=== PATIENT | male | born 1975 | race Caucasian/White ===

== ENCOUNTER 2020-01-19 08:50 | Day surgery (SDC) | payer MEDICAID, OTHER ==
[~2020-01-19 08:50] MED LIST: ACETAMINOPHEN 1,000 MG/100 ML BTL IVPB ONE
[2020-01-19] MEDS ORDERED: FENTANYL PF 100MCG/2ML VIAL IV ONE (08:51)
[2020-01-19] MEDS ORDERED: LIDOCAINE 2% MDV (20MG/ML) 20ML VIAL IV ONE (08:51)
[2020-01-19] MEDS ORDERED: PROPOFOL 10 MG/ML VIAL IV ONE (08:51)
[2020-01-19] MEDS ORDERED: MIDAZOLAM HCL 2MG/2ML VIAL IV ONE (08:51)
[2020-01-19] MEDS ORDERED: RINGERS SOLUTION,LACTATED 1,000 ML IV ONE (09:40)
[2020-01-19] MEDS ORDERED: BUPIVACAINE 0.25% W/EPI MPF 30ML VIAL SQ ONE (11:12)
[2020-01-19] MEDS ORDERED: HYDROCODONE/APAP 5/325MG TABLET PO ONE (11:47)
--- NOTE | 2020-01-21 08:05 | Operative Note ---
DATE OF SURGERY: 01/19/2020 SURGEON: Herb Ramsey D.O. PREOPERATIVE DIAGNOSIS: ADHESIVE CAPSULITIS OF THE RIGHT SHOULDER. POSTOPERATIVE DIAGNOSIS: ADHESIVE CAPSULITIS OF THE RIGHT SHOULDER. OPERATION: 1. MANIPULATION UNDER ANESTHESIA RIGHT SHOULDER. 2. INJECTION RIGHT SHOULDER. DESCRIPTION: This 44-year-old male was taken to the Operating Room and placed in the supine position on the operating room table. General anesthesia was induced and the right upper extremity was taken through range of motion at the shoulder joint. The patient demonstrated approximately 60 degrees of abduction, 110 degrees of forward flexion, and external rotation to approximately 45 degrees. Then with the glenohumeral joint stabilized we abducted the arm to 120 degrees, external rotation to 90 degrees, forward flexion to 180 degrees disrupting cicatrix during the course of the manipulation. We were also manipulated to full crossover position and internal rotation and extension to normal. The joint was then again taken through range of motion to confirm these findings. No glenohumeral instability was noted. The right shoulder was prepped with alcohol and a 22-gauge spinal needle was easily advanced into the glenohumeral joint and we injected approximately 5 ml of 0.25% Marcaine with Epinephrine. Sterile dressings were applied and the patient was taken to the Recovery Room in satisfactory condition. GROSS PATHOLOGY: This patient demonstrated adhesions on the glenohumeral joint of the right shoulder which responded well to manipulation as described above. JOB NUMBER: [id number] MTDD
== END 2020-01-19 12:00 | disposition home or self-care (01) ==
LOC: SUR 08:50
PROVIDERS: ATTEND Orthopaedic Surgery
DX: M75.01 Adhesive capsulitis of right shoulder (principal); E11.9 Type 2 diabetes mellitus without complications; Z79.4 Long term (current) use of insulin; E78.00 Pure hypercholesterolemia, unspecified
CPT/HCPCS: 23700; 20610; 01620; 36416; 82948; J3010; J7120